=== PATIENT | male | born 1965 | race Two or more races ===

== ENCOUNTER → 2024-11-07 | Outpatient (CLI) | payer MEDICAID, SELFPAY ==
--- NOTE | 2024-11-07 14:16 | XR_ITS ---
Examination: Wrist, left 3 views Technique: Wrist AP, oblique, lateral 3 views Date and time of exam: October 26, 2024 at 1429 hrs. Indications: Chronic wrist pain Findings: Mild narrowing radiocarpal joint Mild narrowing first carpometacarpal joint No fracture No erosive arthritis No avascular necrosis Impression: Mild osteoarthritis
--- NOTE | 2024-11-07 14:16 | XR_ITS ---
Examination: Hand, left 3 views Technique: Hand AP, oblique, lateral 3 views Date and time of exam: November 07, 2024 1433 hrs. Indications: Injury to the hand one week ago, hand pain Findings: Acute comminuted fractures distal phalanx first digit, displacement at the fracture sites Widening at the first metacarpal phalangeal joint, minor Impression: Acute comminuted fractures distal phalanx first digit
== END | disposition home or self-care (01) ==
LOC: CDIM 14:02
PROVIDERS: PCP Physician Assistant
DX: M19.032 Primary osteoarthritis, left wrist (principal); S62.522A Displaced fracture of distal phalanx of left thumb, initial encounter for closed fracture; X58.XXXA Exposure to other specified factors, initial encounter
CPT/HCPCS: 73110; 73130